=== PATIENT | male | born 1950 | race Two or more races ===

== ENCOUNTER 2019-07-27 08:53 | Day surgery (SDC) | payer MEDICARE, OTHER ==
[2019-07-27] VITALS (8 sets, daily range): BP systolic 116–138; BP diastolic 67–85
[~2019-07-27] VITALS: Ht 184.2 cm; Wt 79.4 kg
[~2019-07-27 08:53] MED LIST: LR 1000ml 1,000 ML IVLG SCH; METFORMIN HCL1000 M1 ORAL; fentaNYL 100 mcg/2 mL IV ONE
--- NOTE | 2019-07-27 09:26 | Pre-Procedure Note/Attestation ---
Pre-Procedure Note/Attestation Complete Prior to Procedure Planned Procedure: not applicable Procedure Narrative: esophagogastroduodenoscopy and colonoscopy Indications for Procedure Pre-Operative Diagnosis: screening colon, GERD Attestation I attest that I discussed the nature of the procedure; its benefits; risks and complications; and alternatives (and the risks and benefits of such alternatives ), prior to the procedure, with the patient (or the patient's legal telecommunications sales representative). I attest that, if there was a reasonable possibility of needing a blood transfusion, the patient (or the patient's legal telecommunications sales representative) was given the [facility] standardized written summary, pursuant to the [place] Blood Safety Act ([place] Health and Safety Code # 1645, as amended). I attest that I re-evaluated the patient just prior to the surgery and that there has been no change in the patient's H&P, except as documented below: Russ Sullivan MD Jul 27, 2019 09:26
--- NOTE | 2019-07-27 09:26 | Short Stay Surgery H&P ---
History of Present Illness History of Present Illness Chief Complaint see recent office note HPI Clint Ramos is a 68 year old male who was admitted on for Diarrhea,Gerd, Screening Patient History Allergies: Coded Allergies: No Known Allergies (Unverified , 07/14/19) Medication History Scheduled Metformin Hcl* (Metformin Hcl*), 1,000 MG ORAL TID, (Reported) Plan Attestation Are the patient's medical conditions optimized for surgery? Russ Sullivan MD Jul 27, 2019 09:26
[2019-07-27] MEDS ORDERED: INSULIN 70/30 SUBQ (10:13)
[2019-07-27] MEDS ORDERED: Midazolam 2mg/2ml Inj ONE (10:30)
[2019-07-27] MEDS ORDERED: LR 1000ml ONE (10:30)
[2019-07-27] MEDS ORDERED: Propofol 200mg/20ml IV ONE (10:30)
--- NOTE | 2019-07-27 11:04 | Anethesia Preoperative Eval ---
Anesthesia Pre-op PMH/ROS General Date of Evaluation: Jul 27, 2019 Time of Evaluation: 10:31 Anesthesiologist: Missy ASA Score: ASA 3 Mallampati Score Class I : Soft palate, uvula, fauces, pillars visible Class II: Soft palate, uvula, fauces visible Class III: Soft palate, base of uvula visible Class IV: Only hard plate visible Mallampati Classification: Class II Surgeon: Laurie Diagnosis: Abdominal pain Surgical Procedure: EGD Colonoscopy Anesthesia History: none Family History: no anesthesia problems Allergies: Coded Allergies: CAFFEINE (Verified Adverse Reaction, Intermediate, COUGH, 07/27/19) Medications: see eMAR Patient NPO?: Yes Past Medical History Cardiovascular: Reports: HTN; Denies: CAD, LA, valve dz, arrhythmia, other Pulmonary: Denies: asthma, COPD, BETTY, other Gastrointestinal/Genitourinary: Reports: GERD; Denies: CRI, ESRD, other Neurologic/Psychiatric: Reports: dementia, other - Parkinsons; Denies: CVA, depression/anxiety, TIA Endocrine: Reports: DM; Denies: hypothyroidism, steroids, other HEENT: Denies: cataract (L), cataract (R), glaucoma, [place] (L), [place] (R), other Hematology/Immune: Denies: anemia, DVT, bleeding disorder, other Musculoskeletal/Integumentary: Denies: OA, RA, DJD, DDD, edema, other PMH Narrative: as above PSxH Narrative: See H&P Anesthesia Pre-op Phys. Exam Physician Exam Last Vital Signs Date Time Temp Pulse Resp B/P (MAP) Pulse Ox O2 Delivery O2 Flow Rate FiO2 07/27/19 10:14 Room Air 07/27/19 10:00 97.8 81 20 117/67 95 Constitutional: NAD Neurologic: CN 2-12 intact Cardiovascular: RRR, no M/R/G Respiratory: CTA Gastrointestinal: S/NT/ND Airway Exam Mallampati Score: Class II MO: limited Neck: stiff ROM: limited Teeth: missing Dentures: no upper, no lower Anesthesia Pre-op A/P Studies Pre-op Studies: EKG - SR Risk Assessment & Plan Assessment: ASA 3 Plan: MAC Status Change Before Surgery: Emeka Tineo MD Jul 27, 2019 11:04
--- NOTE | 2019-07-27 11:07 | Endoscopy Procedure Note ---
Endoscopy Procedure Note General Indication for Procedure: screening colon, GERD Procedures Performed: EGD, colonoscopy Operative Findings/Diagnosis: esophageal varices, colon polyp Specimen: yes Pt Tolerated Procedure Well: Yes Estimated Blood Loss: none Anesthesia Anesthesiologist: jake Anesthesia: MAC Inserted Devices Implant(s) used?: No Quality Quality of Bowel Preparation: Poor Did scope reach the cecum?: Yes Was there any complications?: No GI Core Measures 50 yrs or older w/o bx or poly: No 10yrs. F/U recommended: Yes If not recommended, why?: Above average risk 18 years or older w/prev. colo: No Russ Sullivan MD Jul 27, 2019 11:07
--- NOTE | 2019-07-27 11:16 | Immediate Post-Op Evaluation ---
Immediate Post-Op Evalulation Immediate Post-Op Evalulation Procedure: EGD Colonoscopy Date of Evaluation: Jul 27, 2019 Time of Evaluation: 11:15 IV Fluids: 600 Blood Products: none Estimated Blood Loss: none Urinary Output: none Blood Pressure Systolic: 120 Blood Pressure Diastolic: 85 Pulse Rate: 74 Respiratory Rate: 20 O2 Sat by Pulse Oximetry: 99 Temperature (Fahrenheit): 97.8 Pain Score (1-10): 1 Nausea: No Vomiting: No Complications none Patient Status: awake, patent, none Hydration Status: adequate Emeka Louis MD Jul 27, 2019 11:16
--- NOTE | 2019-07-27 11:23 | 48 Hour Post Anesthesia Eval ---
Post Anesthesia Evaluation Procedure: EGD Colonoscopy Date of Evaluation: Jul 27, 2019 Time of Evaluation: 11:22 Blood Pressure Systolic: 122 0: 68 Pulse Rate: 88 Respiratory Rate: 18 Temperature (Fahrenheit): 97.6 O2 Sat by Pulse Oximetry: 98 Airway: patent Nausea: No Vomiting: No Pain Intensity: 1 Hydration Status: adequate Cardiopulmonary Status: stable Mental Status/LOC: patient returned to baseline Follow-up Care/Observations: n/a Post-Anesthesia Complications: none Follow-up care needed: ready to discharge Emeka Louis MD Jul 27, 2019 11:23
[2019-07-27 11:45] LABS: EOSINOPHILS % (AUTO) 4.5 % (0.0-3.0); HEMATOCRIT 40.4 % (42.0-52.0); HEMOGLOBIN 12.9 G/DL (14.2-18.0); MEAN CORPUSCULAR VOLUME 91 FL (80-99); MONOCYTES % (AUTO) 7.6 % (1.0-10.0); NEUTROPHILS % (AUTO) 37.9 % (45.0-75.0); PLATELET COUNT 126 K/UL (150-450); RED BLOOD COUNT 4.45 M/UL (4.70-6.10); RED CELL DISTRIBUTION WIDTH 13.1 % (11.6-14.8); WHITE BLOOD COUNT 5.8 K/UL (4.8-10.8)
[2019-07-27 12:00] LABS: INR 1.1 (0.9-1.1)
[2019-07-27 12:05] LABS: ALANINE AMINOTRANSFERASE 84 U/L (12-78); ALBUMIN 3.6 G/DL (3.4-5.0); ALBUMIN/GLOBULIN RATIO 0.8 (1.0-2.7); ALKALINE PHOSPHATASE 66 U/L (46-116); ANION GAP 3 mmol/L (5-15); ASPARTATE AMINO TRANSFERASE 203 U/L (15-37); BILIRUBIN,TOTAL 0.8 MG/DL (0.2-1.0); BLOOD UREA NITROGEN 13 mg/dL (7-18); CARBON DIOXIDE 35 MMOL/L (21-32); CHLORIDE 101 MMOL/L (98-107); CREATININE 1.1 MG/DL (0.55-1.30); POTASSIUM 5.2 MMOL/L (3.5-5.1); SODIUM 139 MMOL/L (136-145)
--- NOTE | 2019-07-27 15:30 | Procedure Note ---
DATE OF PROCEDURE: 07/27/2019 SURGEON: Russ Sullivan M.D. PROCEDURE: Upper endoscopy with biopsy and colonoscopy with biopsy. ANESTHESIA: Per Dr. Louis. INSTRUMENT: Olympus adult flexible upper endoscope and colonoscope. INDICATION: Screening colonoscopy evaluation, chronic GERD. REASON FOR PROCEDURE: The procedure, risks, benefits, and possible consequences, including hemorrhage, aspiration, perforation and infection, and alternative treatments, were explained to the patient/legal guardian by Dr. Russ Sullivan and the patient/legal guardian understood and accepted these risks. PROCEDURE IN DETAIL: After informed consent was obtained and the patient was adequately sedated, Olympus upper endoscope was advanced from mouth into the second portion of the duodenum and retroflexion was performed in the stomach. The patient had evidence of 4 columns of grade 2 distal esophageal varices without any stigmata. In the stomach, there was diffuse gastritis and mild portal hypertensive gastropathy. Biopsy from the antrum was obtained to rule out H. pylori infection. At this time, the upper endoscope was retrieved. The patient was turned over for colonoscopy. First, rectal exam was performed, which showed internal hemorrhoids. Then, the scope were advanced from rectum into the cecum. Quality of prep was very poor. This examination was limited. one polyp in the sigmoid removed with a cold polypectomy technique. Retroflexion of rectum showed evidence of internal hemorrhoids. The patient tolerated procedure very well without any complications. SUMMARY OF FINDINGS: 1. Four columns of grade 2 distal esophageal varices. 2. Portal hypertensive gastropathy, mild. 3. Gastritis, status post biopsy. 4. Poor colonic prep. 5. One colonic polyp removed, see above for details. 6. Internal hemorrhoids. RECOMMENDATIONS: Workup for cirrhosis, we then send the labs today. The patient is to be followed in the office for abdominal ultrasound order and evaluation for cirrhosis. of colonoscopy was poor prep. We find one polyp, so the patient needs another colonoscopy in one year and we will follow on the pathology. Russ Sullivan M.D. DR: MV/IN JOB#: [id number] CC:
--- NOTE | 2019-07-28 12:49 | Cardiology Report ---
APPROVED REPORT EKG Measurement Heart [id number] Normal sinus rhythm Possible Left atrial enlargement Left axis deviation Right bundle branch block Left ventricular hypertrophy Abnormal ECG
== END 2019-07-27 12:25 | disposition home or self-care (01) ==
LOC: GAS 08:53
DX: Z12.11 Encounter for screening for malignant neoplasm of colon (principal); K21.9 Gastro-esophageal reflux disease without esophagitis; D12.5 Benign neoplasm of sigmoid colon; I85.00 Esophageal varices without bleeding; K76.6 Portal hypertension; K31.89 Other diseases of stomach and duodenum; K29.70 Gastritis, unspecified, without bleeding; K63.5 Polyp of colon; K64.8 Other hemorrhoids; I45.10 Unspecified right bundle-branch block; I10 Essential (primary) hypertension; E11.9 Type 2 diabetes mellitus without complications; F03.90 Unspecified dementia, unspecified severity, without behavioral disturbance, psychotic disturbance, mood disturbance, and anxiety; G20 Parkinson's disease
CPT/HCPCS: 36415; 43239; 45385; 80053; 82962; 85025; 85610; 85730; 93005; J2250; J2704; J3010; J7120; 86705; 86709; 86803; 87340; 94003; 94150

== ENCOUNTER 2019-08-18 14:23 | Outpatient (CLI) | payer MEDICARE, OTHER ==
[~2019-08-18 14:23] MED LIST changes: +INSULIN 70/30 SUBQ; -LR 1000ml 1,000 ML IVLG SCH; -fentaNYL 100 mcg/2 mL IV ONE
== END 2019-08-18 16:23 | disposition home or self-care (01) ==
LOC: LAB 14:23
DX: K74.60 Unspecified cirrhosis of liver (principal)
CPT/HCPCS: 82105; 86039; 86235; 86256; 86644; 86645; 86665

== ENCOUNTER 2020-03-08 13:00 | Outpatient (CLI) | payer MEDICARE, MEDICAID | END 2020-03-08 15:00 | disposition home or self-care (01) | DX: R10.9 Unspecified abdominal pain (principal); Z86.010 Personal history of colon polyps ==